=== PATIENT | male | born 1990 | race Caucasian/White ===

== ENCOUNTER 2020-06-17 02:00 | Emergency (ER) | payer OTHER ==
[2020-06-17 02:26] LABS: ABSOLUTE BASOPHILS # (AUTO) 0.1 10^3/uL (0.0-0.2); ABSOLUTE EOSINOPHILS # (AUTO) 0.2 10^3/uL (0.0-0.6); ABSOLUTE NEUT (AUTO) 6.3 10^3/uL (1.7-8.2); BASOPHILS % (AUTO) 0.6 % (0-2); EOSINOPHILS % (AUTO) 1.6 % (0-6); HEMATOCRIT 50.2 % (37.9-51.0); HEMOGLOBIN 17.5 g/dL (13.5-17.0); LYMPHOCYTES % (AUTO) 28.8 % (13-45); MEAN CORPUSCULAR HEMOGLOBIN 31.6 pg (27.0-33.4); MEAN CORPUSCULAR HGB CONC 34.9 g/dL (32.0-36.0); MEAN CORPUSCULAR VOLUME 91 fl (80-97); MONOCYTES % (AUTO) 9.2 % (3-13); PLATELET COUNT 306 10^3/uL (150-450); RED BLOOD COUNT 5.53 10^6/uL (4.35-5.55); RED CELL DISTRIBUTION WIDTH 14.1 % (11.5-14.0); SEGMENTED NEUTROPHILS % (AUTO) 59.8 % (42-78); TOTAL CELLS COUNTED % (AUTO) 100 %; WHITE BLOOD COUNT 10.6 10^3/uL (4.0-10.5)
[2020-06-17 02:40] LABS: ACETAMINOPHEN < 10 ug/mL (10-30); ALCOHOL 227 mg/dL (NONE DETECTED); ALKALINE PHOSPHATASE 61 U/L (38-126); ANION GAP 13 (5-19); ASPARTATE AMINO TRANSFERASE 37 U/L (17-59); BILIRUBIN,DIRECT 0.2 mg/dL (0.0-0.4); BILIRUBIN,TOTAL 1.1 mg/dL (0.2-1.3); BLOOD UREA NITROGEN 16 mg/dL (7-20); CALCIUM 9.2 mg/dL (8.4-10.2); CARBON DIOXIDE 22 mmol/L (22-30); CHLORIDE 110 mmol/L (98-107); GLUCOSE 107 mg/dL (75-110); POTASSIUM 4.3 mmol/L (3.6-5.0); SALICYLATE < 1.0 mg/dL (2.0-20.0); TOTAL PROTEIN 7.9 g/dL (6.3-8.2)
[2020-06-17] MEDS ORDERED: NICOTINE 21 MG/24 HR PATCH.TD24 TD ONE ×2 (02:45→09:13)
[2020-06-17 03:30] LABS: APPEARANCE,URINE CLEAR; BILIRUBIN,URINE NEGATIVE (NEGATIVE); COLOR,URINE STRAW; GLUCOSE, URINE NEGATIVE (NEGATIVE); KETONES,URINE NEGATIVE (NEGATIVE); LEUKOCYTE ESTERASE,URINE NEGATIVE (NEGATIVE); NITRITE,URINE NEGATIVE (NEGATIVE); PROTEIN,URINE NEGATIVE (NEGATIVE); URINE SPECIFIC GRAVITY 1.005; UROBILINOGEN,URINE NEGATIVE mg/dL (<2.0)
[2020-06-17 03:51] LABS: URINE AMPHETAMINES SCREEN NEGATIVE; URINE BARBITURATES SCREEN NEGATIVE; URINE BENZODIAZEPINES SCREEN NEGATIVE; URINE COCAINE SCREEN NEGATIVE; URINE MARIJUANA (THC) SCREEN NEGATIVE; URINE METHADONE SCREEN NEGATIVE; URINE PHENCYCLIDINE SCREEN NEGATIVE
--- NOTE | 2020-06-17 04:41 | RADIOLOGY REPORT (SQ) ---
EXAM DESCRIPTION: XR HAND 3 OR MORE VIEWS COMPLETED DATE/TME: 06/17/2020 03:03 CLINICAL HISTORY: 29 years, Male, punched cabinets COMPARISON: None. NUMBER OF VIEWS: 3 TECHNIQUE: 3 view right hand LIMITATIONS: None. FINDINGS: Negative for acute fracture or dislocation. Soft tissues are unremarkable IMPRESSION: Negative exam copyright 2011 [employer]- All Rights Reserved
--- NOTE | 2020-06-17 06:43 | ER Document Report ---
ED Psych Disorder / Suicide - General Chief Complaint: Suicidal Ideation Stated Complaint: IVC Time Seen by Provider: 06/17/20 02:11 Notes: Patient is a 29-year-old male who presents to the emergency department with a chief complaint of suicidal ideation. Patient is brought in with IVC paperwork. When asked if the patient was suicidal or homicidal, he denied those thoughts at the time of assessment. Patient states that he had been drinking tonight. Patient states that he was punching cabinets. According to the IVC paperwork, the patient had a gun and attempted to commit suicide. Patient came home and his was not home. Patient's is currently . According the patient, he states that, "I am having normal everyday problems." Patient was not wanting to elaborate. - Related Data Allergies/Adverse Reactions: No Known Allergies Allergy (Unverified 06/17/20 02:52) Past Medical History - General Information source: Patient - Social History Smoking Status: Current Every Day Smoker Frequency of alcohol use: Heavy Family History: Reviewed & Not Pertinent Patient has homicidal ideation: No Review of Systems - Review of Systems Notes: REVIEW OF SYSTEMS: CONSTITUTIONAL : Denies recent illness. Denies recent unintentional weight loss. Denies fever, chills, or sweats. EENT: Denies eye, ear, throat, or mouth pain, discharge, or symptoms. Denies nasal or sinus congestion. CARDIOVASCULAR: Denies chest pain. RESPIRATORY: Denies shortness of breath, cough, congestion, difficulty breathing, or wheezing. GASTROINTESTINAL: Denies nausea, vomiting, and diarrhea. Denies abdominal pain. Denies constipation. GENITOURINARY: Denies difficulty urinating, burning, blood in urine, urgency or frequency. MUSCULOSKELETAL: Denies neck and back pain. See HPI. SKIN: Denies rash, itchiness, or lesions HEMATOLOGIC : Denies easy bruising or bleeding. LYMPHATIC: Denies swollen, painful, enlarged glands. NEUROLOGICAL: Denies no numbness or tingling denies weakness. Denies headache. Denies altered mental status. Denies alteration in speech. PSYCHIATRIC: See HPI. All other systems reviewed and negative. Physical Exam - Vital signs Vitals: Temp Pulse Resp BP Pulse Ox 97.6 F 79 20 154/70 H 100 06/17/20 02:12 06/17/20 02:12 06/17/20 02:12 06/17/20 02:12 06/17/20 02:12 - Notes Notes: PHYSICAL EXAMINATION: GENERAL: Appears under the influence of alcohol HEAD: Normocephalic, atraumatic. EYES: PERRL, conjunctiva normal, all extraocular movements intact, sclera nonicteric ENT: Moist mucous membranes. NECK: Supple, no noticeable swelling, redness, rash. Normal range of motion. LUNGS: Equal breath sounds bilaterally and clear to auscultation. No wheezes rales or rhonchi. CARDIOVASCULAR: S1-S2, regular rate, regular rhythm. Radial pulses 2+, normal. ABDOMEN: Normoactive bowel sounds. Soft, nontender, no guarding, no rebound tenderness, and no masses palpated. EXTREMITIES: Normal strength and range of motion, no pitting or edema. No cyanosis. NEUROLOGICAL: Moves all extremities upon command. Strength 5/5 in all extremities. PSYCH: Normal mood, normal affect. SKIN: Warm, dry. Abrasions noted to right knuckles. Course - Re-evaluation Re-evalutation: 06/17/20 06:00 Hematology shows a undifferentiated leukocytosis of 10,300. His hemoglobin 17.5. This most likely due to dehydration due to the patient drinking. Chemistries are unremarkable. Urinalysis is also normal. Serum alcohol is 227, as this is to be expected, as the patient states that he is drinking. Urine d rug screen is unremarkable. Salicylates and acetaminophen are negative. At this time, the patient is medically clear for mental health evaluation by Dr. Zavala and staff. Hand x-ray is unremarkable. - Vital Signs Vital signs: Temp Pulse Resp BP Pulse Ox 97.8 F 83 18 113/46 L 97 06/17/20 06:18 06/17/20 06:18 06/17/20 06:18 06/17/20 06:18 06/17/20 06:18 - Laboratory Result Diagrams: 06/17/20 02:16 06/17/20 02:16 Laboratory results interpreted by me: 06/17/20 06/17/20 02:16 02:16 WBC 10.6 H Hgb 17.5 H RDW 14.1 H Chloride 110 H Salicylates < 1.0 L Acetaminophen < 10 L Discharge - Discharge Clinical Impression: Suicidal ideation, Alcohol abuse Condition: Stable Disposition: PSYCH HOSP/UNIT
[2020-06-17] MEDS ORDERED: ACETAMINOPHEN 325 MG TABLET PO ONE (09:04)
--- NOTE | 2020-06-17 09:16 | EKG REPORT ---
SEVERITY:- ABNORMAL ECG - SINUS RHYTHM INFERIOR Q WAVES, PROBABLY NORMAL VARIATION BORDERLINE T ABNORMALITIES, INFERIOR LEADS ST ELEVATION SUGGESTS PERICARDITIS : Confirmed by: Saúl Klein 17-Jun-2020 09:15:50
--- NOTE | 2020-06-17 12:56 | ER Document Report ---
Doctor's Note Notes: 06/17/20 12:56 Patient is pacing in the room at this time but is in otherwise no acute distress. His initial hand x-ray was negative. His alcohol level when he was originally taken in was slightly elevated at 227. Patient's other screening labs were negative for acute findings. Awaiting psychiatric recommendations.
[2020-06-17] MEDS: CHLORPROMAZINE HCL INJ 25 MG/1 ML AMPULE IM SCH (18:43)
[2020-06-17] MEDS: BENZTROPINE MESYLATE INJ 2 MG/2 ML AMPULE IM SCH (18:43)
[2020-06-18] MEDS: CHLORPROMAZINE HCL INJ 25 MG/1 ML AMPULE IM SCH ×3 (00:47→17:27)
--- NOTE | 2020-06-18 10:28 | ER Document Report ---
Doctor's Note Notes: 06/18/20 14:39 Note patient reevaluated at this time. COVID-19 test is pending. [facility], they will not review his package until they have a negative COVID-19 test.
[2020-06-18] MEDS: BENZTROPINE MESYLATE INJ 2 MG/2 ML AMPULE IM SCH (12:31)
--- NOTE | 2020-06-18 13:37 | PSYCHOLOGICAL NOTE ---
Psych Note - Psych Note Date seen by psych provider: 06/17/20 Time seen by psych provider: 11:46 - Evaluation with patient from [id number]. Obtained colalteral from Dr. Mooney at 1239. Obtained collateral from from [id number]. 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 Mooney for multiple psychosocial stresses, several months ago using excessive amounts of steroids which seemed to increase anger/rage, he said he stopped but 3 months ago started drinking alcohol daily, has made comments of not caring about anything and threatening to hurt self//8 year old son/baby on the way, and last evening while intoxicated via alcohol said he was going to shoot self in face/head (had means, access, had to wrestle gun from him, he had others in his truck that he would not give keys to, then he was not in his room at home where left when the truck was unlocked with door open). Patient reported "I am ready to go, I remember everything from last night." He acknowledged "obviously I drank too much that was my first problem, I had [place], then I had the stupid idea to do shots of Vodka after, it was not the best idea." Serum Alcohol Level was 227 upon arrival to the emergency department. He identified he has been drinking daily for the past 3 months. Patient admitted "i punched a hole in the cabinet." He admitted "I have been arguing with my a lot." He denied current suicidal and homicidal ideation. He denied saying he was going to shoot himself and that he was going to load one of his guns. He commented "I don't remember that." He admitted to having multiple firearms in the home, none are loaded. Patient reported new stress as "work, issues with my , and being again." He denied previous mental health hospitalizations. He denied previous alcohol treatment, noted he started drinking 3 months ago and admitted it is a problem. He stated he was not interested in detoxification or treatment for alcohol and said "I just want to get back to normal." He denied being prescribed medications or having mental health services. He noted maternal family history of alcoholism otherwise was unaware of family mental health history. He denied other drug use. Patient was alert and oriented to self, person, place, time and situation. Mood was euthymic with congruent affect until being told staying as Involuntary Commitment then more irritable. He denied current suicidal and homicidal ideation, denied making statements last evening and said he did not remember it. Patient did not appear to be responding to internal stimuli as evidenced by fair eye contact and answering questions appropriately when addressed. Thought processes were linear and organized. Conversational speech was within normal limits for rate, tone and prosody. Intellectual abilities are estimated to be average. Insight, judgment and impulse control were poor as evidenced by minimizing crisis event last evening and discrepancies in his recollection of only the suicidal ideation from last evening but having said he remembered everything. At [address] Mooney. Please see her note regarding that information. From [id number] obtained collateral from patient's Ilda [phone], patient did provide this contact information) when she called in. She stated patient has already called her and parents, blaming them, saying they need to get him out, and threatening to leave . She noted he said nobody has talked with or assessed him, or let him know what was going on (patient had already been assessed, been told plan of care for Involuntary Commitment and placement, which is why he asked to make phone calls to begin with). She noted "he is made and upset, wanted to know who put him here, said he needed to get out, was upset he could not have cigarettes and personal belongings." reported her and the neighbor were present when patient said he was going to shoot self then proceeded to try to load gun. She noted she "had to wrestle the gun from him which took 10-15 seconds, it was a major struggle, and it was after that he punched a hole in the cabinet." She identified they were talking about her being and he kept looking back at the gun. She noted he had two other guns in his truck but would not give keys, he was supposed to be in his room at home but was not when the neighbor notices patient's tuck unlocked with door wide open. noted all firearms and swords have been removed from the home. She was informed of plan of care being Involuntary Commitment and seek short term hospitalization. Clinical Presentation: Alcohol Intoxication- felt to be self medicating the past 3 months which is when use started Suicidal ideation with statement to shoot self, proceeded to load gun, had to wrestle gun from him, had two other guns in his truck that he would not give keys up to Multiple psychosocial stresses (work, financial, arguing with , again) Had been using excessive amounts of Steroids several months back which is when anger/rage were noted Medication recommendations made by the psychiatric medication provider Dr. Lisa TORRES., includes: Add Thorazine 50MG Intramusclar every 8 hours scheduled for agitation/calming effect Add Cogentin 1MH Intramuscular daily to curb tremor side effects often associated with antipsychotic medications Impression/Plan: Recommendation to maintain FULL Involuntary Commitment. Patient's anger and rage were noted several months back when he started using excessive amounts of steroids. He said he stopped but started drinking daily 3 months ago. He noted multiple psychosocial stresses (work, arguing with , being again). He admitted to drinking too much last evening. Per report that her and neighbor witnessed him threatening suicide, going for gun to load it, having to wrestle gun from patient, patient punching whole in cabinet after, and patient having other firearms in his truck but would not give up his keys. Per firearms and swords have been removed from the home. Patient minimizes crisis. Consulted with Dr. Mooney regarding the management and care of patient. ED Physician in agreement with recommendations.
[2020-06-18] MEDS ORDERED: NICOTINE 21 MG/24 HR PATCH.TD24 TD ONE (17:55)
--- NOTE | 2020-06-18 19:16 | PSYCHOLOGICAL NOTE ---
Psych Note - Psych Note Date seen by psych provider: 06/18/20 Time seen by psych provider: 12:00 Psych Note: Patient is a 29 year old male who presented to the Emergency Department via [facility], petitioned for Involuntary Commitment by Dr. Mooney for multiple psychosocial stresses, several months ago using excessive amounts of steroids which seemed to increase anger/rage, he said he stopped but 3 months ago started drinking alcohol daily, has made comments of not caring about anything and threatening to hurt self//8 year old son/baby on the way, and last evening while intoxicated via alcohol said he was going to shoot self in face/head (had means, access, had to wrestle gun from him, he had others in his truck that he would not give keys to, then he was not in his room at home where left when the truck was unlocked with door open). Check in conducted with patient: Patient reports the gun that his and he found over was not loaded. He reports he only grabbed the gun "to get attention." Patient disclosed that he would like to do outpatient. Mood is euthymic; is he clam and engages appropriately with clinician. Clinical Presentation: Alcohol Intoxication- felt to be self medicating the past 3 months which is when use started Suicidal ideation with statement to shoot self, proceeded to load gun, had to wrestle gun from him, had two other guns in his truck that he would not give keys up to Multiple psychosocial stresses (work, financial, arguing with , again) Had been using excessive amounts of Steroids several months back which is when anger/rage were noted Medication recommendations made by the psychiatric medication provider Dr. Lisa TORRES., includes: please adjust Thorazine 50MG to PO twice daily please adjust Cogentin 1MH to PO daily please add effexor 37.5mg daily please add buspar 5mg twice daily Impression/Plan: Recommendation to maintain FULL Involuntary Commitment. Patient's anger and rage were noted several months back when he started using excessive amounts of steroids. He said he stopped but started drinking daily 3 months ago. He noted multiple psychosocial stresses (work, arguing with , being again). He admitted to drinking too much last evening. Per report that her and neighbor witnessed him threatening suicide, going for gun to load it, having to wrestle gun from patient, patient punching whole in cabinet after, and patient having other firearms in his truck but would not give up his keys. Per firearms and swords have been removed from the home. Patient minimizes crisis. Consulted with Dr. Mooney regarding the management and care of patient. ED Physician in agreement with recommendations.
[2020-06-18] MEDS ORDERED: BENZTROPINE MESYLATE 1 MG TABLET PO ONE (20:21)
[2020-06-18] MEDS: BUSPIRONE HCL 10 MG TABLET PO SCH (22:22)
[2020-06-18] MEDS: VENLAFAXINE HCL 37.5 MG CAP.SR.24H PO SCH (22:24)
[2020-06-18] MEDS: CHLORPROMAZINE HCL 50 MG TABLET PO SCH (22:24)
[2020-06-19] MEDS: CHLORPROMAZINE HCL 50 MG TABLET PO SCH (10:39)
[2020-06-19] MEDS: BUSPIRONE HCL 10 MG TABLET PO SCH (10:39)
[2020-06-19] MEDS: VENLAFAXINE HCL 37.5 MG CAP.SR.24H PO SCH (10:39)
--- NOTE | 2020-06-19 11:37 | ER Document Report ---
Doctor's Note Notes: 06/19/20 11:36 Patient's vital signs and previous labs, diagnostic images reviewed. Reviewed mental health notes, nurse's notes and previous providers notes. VSS. Pt is in no distress at this time. Denies any SI or HI. General: A&Ox3. Answers questions appropriately. Heart: RRR Lungs: CTAB Psych: Flat affect A/P: Continue monitoring and rec's per MH. Normal diet Consider placement to [place]
[2020-06-19 13:15] VITALS: BP 150/87
--- NOTE | 2020-06-19 16:28 | PSYCHOLOGICAL NOTE ---
Psych Note - Psych Note Date seen by psych provider: 06/19/20 Time seen by psych provider: 12:00 Psych Note: Patient has been accepted by [facility] is morning. transportation was requested. Clinician spoke with patient's to provide plan of care up date and answered questions. Patient's was provided [facility] phone number. Clinician spoke with patient to provided update on plan of care and answered any questions. At this time, there is not further concerns; patient was transported via [facility].
[2020-06-23 07:02] LABS: ESTROGENS TOTAL 116 pg/mL (40-115)
[2020-06-23 07:05] LABS: TESTOSTERONE FREE (DIRECT) 25.2 pg/mL (9.3-26.5)
== END 2020-06-19 13:15 ==
LOC: ER 02:00
DX: R45.851 Suicidal ideations (principal); F10.10 Alcohol abuse, uncomplicated; Y90.7 Blood alcohol level of 200-239 mg/100 ml; F17.200 Nicotine dependence, unspecified, uncomplicated; Z03.818 Encounter for observation for suspected exposure to other biological agents ruled out
CPT/HCPCS: 93005; 99285; 96372; 36415; 80307 ×4; 84443; 84403; 85025; 87635; 80053; 81001; 84402; 82672; 73130; 93010; J0515; J3230 ×2; J3490 ×4; C9803